=== PATIENT | male | born 1945 | race Caucasian/White ===

== ENCOUNTER 2017-03-04 14:43 | Emergency (ER) | payer MEDICARE ==
--- NOTE | 2017-03-04 15:24 | ED Physician Documentation ---
PD HPI LOWER EXT INJURY - Stated complaint Stated Complaint: RT KNEE PX - Chief complaint Chief Complaint: Ext Problem - History obtained from History obtained from: Patient - History of Present Illness PD HPI LOW EXT INJURY LOCATION: Other (He has bilateral total knee replacements. With increased activity but no specific trauma he developed swelling and significant suprapatellar pain of the right knee today and is now barely able to walk. There is no associated fever.) Review of Systems Constitutional: denies: Fever, Chills Respiratory: denies: Dyspnea, Cough GI: denies: Abdominal Pain, Nausea, Vomiting PD PAST MEDICAL HISTORY - Past Medical History Past Medical History: Yes Cardiovascular: Hypertension, Atrial fibrillation - Past Surgical History Past Surgical History: Yes - Present Medications Home Medications: Ambulatory Orders Medication Instructions Recorded Confirmed Apixaban [Eliquis] 5 mg PO DAILY 03/04/17 03/04/17 HYDROcod/ACETAM 5/325 [Scio 5/325] 1 - 2 ea PO Q6H PRN #10 tablet 03/04/17 Lisinopril 5 mg PO DAILY 03/04/17 03/04/17 Metoprolol Tartrate 50 mg PO BID 03/04/17 03/04/17 - Allergies Allergies/Adverse Reactions: Allergies Allergy/AdvReac Type Severity Reaction Status Date / Time No Known Drug Allergies Allergy Verified 03/04/17 14:48 - Social History Does the pt smoke?: No Smoking Status: Never smoker Does the pt drink ETOH?: Yes Does the pt have substance abuse?: No PD ED PE NORMAL - Vitals Vital signs reviewed: Yes - General General: Alert and oriented X 3, No acute distress - Extremities Extremities: Other (The right knee has painless range of motion and no warmth or redness, but he does have a very large effusion.) - Neuro Neuro: Alert and oriented X 3, Normal speech - Psych Psych: Normal mood, Normal affect Results - Vitals Vitals: Vital Signs - 24 hr 03/04/17 03/04/17 14:45 16:50 Temperature 35.6 C L 37.2 C Heart Rate 89 100 Respiratory 20 18 Rate Blood Pressure 159/102 H 156/98 H O2 Saturation 97 96 Oxygen O2 Source Room air Procedures - Arthrocentesis Joint: Knee, Right Preparation: Consent obtained (Written consent including the increased risk of bleeding given his anticoagulated status, and after discussion he wanted to go ahead with it) Anesthesia: Lidocaine 1% Fluid: Bloody (Completely bloody fluid, 90 mL total with significant improvement in his pain. Sent only for culture, cell count etc. will be useless on this fluid.) PD MEDICAL DECISION MAKING - ED course ED course: He had great improvement in his pain after therapeutic arthrocentesis, the fluid was sent for culture but I have a low suspicion for infection. It was basically blood, there is no utility in sending it for a cell count etc. I spoke with the orthopedist on-call for his, Dr. Car in [place] who agreed with a pressure dressing and conservative care otherwise. Departure - Departure Disposition: Home, Self Care Clinical Impression: Effusion, right knee Condition: Good Record reviewed to determine appropriate education?: Yes Instructions: ED Effusion Knee Prescriptions: HYDROcod/ACETAM 5/325 [Scio 5/325] 1 - 2 ea PO Q6H PRN #10 tablet PRN Reason: Pain Comments: Tylenol as needed for pain. Return immediately if worse, follow-up with your orthopedist on return home. Your blood pressure was elevated today on check into the emergency department. This does not mean that you have hypertension, it is a common phenomenon to come to the emergency department and have elevated blood pressure. I recommend that she see her primary care physician within the week to have it rechecked when you are feeling better. Discharge Date/Time: 03/04/17 16:51
[2017-03-04] MEDS ORDERED: LIDOCAINE MPF 1%-EPI 1:200000 30 ML VIAL ONE (15:26)
[2017-03-04] MEDS ORDERED: HYDROcod/ACETAM 5/325 MG TABLET PO STA (16:35)
[2017-03-04] MEDS ORDERED: HYDROcod/ACETAM 5/325 MG TABLET ONE (16:48)
[2017-03-04 16:51] VITALS: BP 156/98
== END 2017-03-04 16:51 | disposition home or self-care (01) ==
LOC: ED 14:43
DX: M25.461 Effusion, right knee (principal); I10 Essential (primary) hypertension; I48.91 Unspecified atrial fibrillation; Z96.653 Presence of artificial knee joint, bilateral; Z79.01 Long term (current) use of anticoagulants
CPT/HCPCS: 20610; 87070; 87205; 99283; A9270